=== PATIENT | female | born 1980 | race Caucasian/White ===

== ENCOUNTER 2024-10-08 10:42 | Outpatient (AMB) | payer OTHER, SELFPAY ==
--- NOTE | 2024-10-08 10:17 | MHC.PC.OV ---
Vital Signs 10/08/24 11:02 Height 5 ft 5.2 in Weight 166 lb BMI 27.5 BP 98/74 Blood Pressure Location Rt brachial Position Sitting Pulse 93 Pulse Source Pulse Oximeter Pulse Oximetry (%) 98 Oxygen Delivery Method Room Air Intake Visit Reasons: [facility] FROM [facility]/ MEDICATIONS Intake Note: New patient visit Shared Services Representative Required: No Allergies No Known Allergies [No Known Allergies*] Allergy (Verified 10/08/24 10:18) Tobacco use date assessed: 10/08/24 Dental Screening Dental Screen Date: 10/08/24 Did you have a dental visit in the last 12 months?: Yes Did you have a dental problem in the last 6 months where you did not have access to dental care?: No Was dental information given to patient?: Patient has dentist HPI HPI Comments History of Present Illness Details The patient is a 44-year-old female with a history of anxiety, GERD, recurrent UTI, follow-up anxiety: Stable on. Ativan as needed GERD: Stable on Prilosec 40 mg daily. Has had EGD in the past few years. She is unable to tolerate coming off the medication She had CT neck 10/25/2020 showing thyroid enlargement bilaterally without any tracheal compression. She gets a sensation of neck tightness and fullness. Recurrent UTI with a history of bladder mesh -stable Anxiety/depression: Stable on celexa but libido is low which is bothersome Hand pain: Following with orthopedics plant pathologist Dr. Merle MARINELLI CONSTITUTIONAL: Denies weight loss, fever and chills. HEENT: Denies changes in vision and hearing. RESPIRATORY: +cough CV: Denies palpitations and CP GI: Denies abdominal pain, nausea, vomiting and diarrhea. : Denies dysuria and urinary frequency. MSK: Denies new myalgia and joint pain. SKIN: Denies rash and pruritus. NEUROLOGICAL: Denies headache PSYCHIATRIC: Denies recent changes in mood. PHYSICAL EXAM: GENERAL: Alert and oriented x 3. NAD EYES: EOMI. Anicteric. HENT: Moist mucous membranes. No scleral icterus. thyroid heterogenous. LUNGS: Decrease air entry b/l CARDIOVASCULAR: Regular rate and rhythm. No murmur. No JVD. ABDOMEN: Soft, non-tender +bs EXTREMITIES: No edema. Non-tender. SKIN: No rashes or lesions. Warm. NEUROLOGIC: No focal neurological deficits. CN II-XII grossly intact PSYCHIATRIC: Cooperative. Appropriate mood and affect [facility] Surgical History (Updated 10/08/24 @ 10:59 by Marry Lema CMA) History of bladder surgery History of tonsillectomy Family History (Updated 10/08/24 @ 10:27 by Marry Lema CMA) Mother Leukemia Father No problems noted. 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 How often do you have a drink containing alcohol?: Never 3. How often do you have six or more drinks on one occasion?: Never Total Score: 0 Physical exam (Primary Care) Vital Signs: Last Vital Signs Pulse 93 10/08/24 11:02 BP 98/74 10/08/24 11:02 Pulse Ox 98 10/08/24 11:02 Oxygen Delivery Method Room Air 10/08/24 11:02 BMI result Body Mass Index 27.5 Tobacco/Smoking Status: Tobacco use Status Tobacco use date assessed 10/08/24 10/08/24 10:28 Patient Tobacco Use Status Never used Tobacco 10/08/24 11:07 e-Cigarette/Vaping Use Never Used 10/08/24 11:07 Coding Level of Care Code Est Pt Level 4 (38882) Complex EM visit Add On G2211 Diagnoses Anxiety and depression F41.9; F32.A Thyroid nodule E04.1 Assessment & Plan Assessment & Plan (1) Anxiety and depression: Code(s): F41.9 - Anxiety disorder, unspecified; F32.A - Depression, unspecified Category: Medical Plan: stable on celexa. Will add wellbutrin given sexual side effects (2) Thyroid nodule: Code(s): E04.1 - Nontoxic single thyroid nodule Category: Medical Plan: thyroid u/s ordered Plan cough-persistent. zpak and prednisone sent Orders: Orders US thyroid Today E04.1 - Nontoxic single thyroid nodule, F32.A - Depression, unspecified, F41.9 - Anxiety disorder, unspecified Thyroid Peroxidase Antibodies Today E04.1 - Nontoxic single thyroid nodule, F32.A - Depression, unspecified, F41.9 - Anxiety disorder, unspecified Complete Blood Count Auto Diff Today E04.1 - Nontoxic single thyroid nodule, F32.A - Depression, unspecified, F41.9 - Anxiety disorder, unspecified, Z13.0 - Encounter for screening for diseases of the blood and blood-forming organs and certain disorders involving the immune mechanism, Z13.220 - Encounter for screening for lipoid disorders, Z13.228 - Encounter for screening for other metabolic disorders Lipid Panel Today E04.1 - Nontoxic single thyroid nodule, F32.A - Depression, unspecified, F41.9 - Anxiety disorder, unspecified, Z13.0 - Encounter for screening for diseases of the blood and blood-forming organs and certain disorders involving the immune mechanism, Z13.220 - Encounter for screening for lipoid disorders, Z13.228 - Encounter for screening for other metabolic disorders TSH reflex Free T4 Today E04.1 - Nontoxic single thyroid nodule, F32.A - Depression, unspecified, F41.9 - Anxiety disorder, unspecified Comprehensive Met. Panel Today E04.1 - Nontoxic single thyroid nodule, F32.A - Depression, unspecified, F41.9 - Anxiety disorder, unspecified, Z13.0 - Encounter for screening for diseases of the blood and blood-forming organs and certain disorders involving the immune mechanism, Z13.220 - Encounter for screening for lipoid disorders, Z13.228 - Encounter for screening for other metabolic disorders Medications: New omeprazole 40 mg PO DAILY 90 caps 3RF citalopram 20 mg PO DAILY 90 tabs 3RF bupropion HCl Take one tablet oral once daily for 7 days then increase to 150mg oral daily. Continue celexa 75 mg PO DAILY 7 tabs 7RF bupropion HCl XL (Wellbutrin XL) 150 mg PO DAILY 90 tabs 3RF prednisone 40 mg (2 x 20 mg) PO DAILY 5 days 10 tabs 0RF albuterol sulfate 90 mcg/actuation 2 puffs inhalation Q6H PRN 8.5 grams 3RF shortness of breath cetirizine (All Day Allergy (cetirizine)) 10 mg PO DAILY 90 tabs 3RF lorazepam 1 mg PO TID PRN 90 tabs 0RF anxiety azithromycin For 250 mg dose pack: take 500 mg today (day 1), then 250 mg for 4 days (days 2-5) PO OK TO TAKE WITH CELEXA 6 tabs 0RF Discontinued nitrofurantoin monohyd/m-cryst 100 mg (Macrobid) must administer with a meal/food Discontinued Reason: Patient no longer taking 100 mg PO Q12H 7 days 14 caps 0RF phenazopyridine (Pyridium) Discontinued Reason: Patient no longer taking 100 mg PO TID PRN 10 tabs 0RF pain ciprofloxacin HCl Discontinued Reason: Patient no longer taking 500 mg PO Q12H 14 tabs 0RF
[2024-10-08 11:02] VITALS: BP 98/74; PULSE 93; O2SAT 98; BMI 27.5
== END 2024-10-08 11:45 | disposition home or self-care (01) ==
PROVIDERS: PCP Internal Medicine; Visit Provider Internal Medicine
DX: F41.9 Anxiety disorder, unspecified (principal); F32.A Depression, unspecified; E04.1 Nontoxic single thyroid nodule

== ENCOUNTER → 2024-10-08 10:42 | Outpatient (BNVA) | payer OTHER, SELFPAY | PROVIDERS: PCP Family Medicine; Visit Provider Internal Medicine ==

== ENCOUNTER 2024-10-08 11:56 | Outpatient (REF) | payer OTHER, SELFPAY ==
[2024-10-08 14:20] LABS: MANUAL DIFF FLAG NO
[2024-10-08 14:33] LABS: Basophils Percent Auto 0.7 % (0-2); Eosinophils Absolute Auto 0.3 X10*3/uL (0.0-0.4); Eosinophils Percent Auto 4.4 % (0-4); Hematocrit 33.7 % (37.0-47.0); Hemoglobin 11.2 g/dl (12.0-16.0); Imm Gran Abs Auto 0.01 X10*3/uL (0.00-0.03); Imm Gran Pct Auto 0.2 % (0.0-0.4); Lymphocytes Absolute Auto 1.9 X10*3/uL (1.2-4.9); Lymphocytes Percent Auto 31.9 % (20-40); Mean Corpuscular HGB Conc 33.2 g/dl (31.0-35.0); Mean Corpuscular Hemoglobin 27.7 pg (27.0-33.0); Mean Corpuscular Volume 83.4 fL (80.0-98.0); Mean Platelet Volume 9.1 fL (9.4-12.3); Monocytes Absolute Auto 0.5 X10*3/uL (0.1-1.2); Monocytes Percent Auto 7.7 % (2-11); Neutrophils Absolute Auto 3.3 x10*3/uL (2.0-8.3); Neutrophils Percent Auto 55.1 % (45-73); Platelet Count 317 X10*3/uL (160-400); Red Blood Count 4.04 X10*6/uL (4.20-5.50)
[2024-10-08 15:20] LABS: Alanine Aminotransferase 29 U/L (0-31); Albumin Level 4.5 g/dL (3.5-5.0); Alkaline Phosphatase 77 U/L (39-117); Anion Gap 9 (12-20); Aspartate Amino Transferase 28 U/L (5-31); Bilirubin Total 0.2 mg/dL (0.0-1.0); Blood Urea Nitrogen 8 mg/dL (9-16); Calcium 9.5 mg/dL (8.4-10.2); Carbon Dioxide 27 mmol/L (22-29); Chloride 106 mmol/L (96-108); Cholesterol 245 mg/dL (<200); Estimated Glomerular Filt Rate > 60; Glucose Random 106 mg/dL (60-115); HDL Cholesterol 56 mg/dL (>40); LDL Cholesterol Calculated 134 mg/dL (<100); Potassium 4.4 mmol/L (3.3-5.1); Sodium 138 mmol/L (135-145); TSH reflex Free T4 1.54 uIU/mL (0.32-4.0); Total Protein 7.2 g/dL (6.5-8.0); Triglycerides 279 mg/dL (<150)
[2024-10-09 18:18] LABS: Thyroid Peroxidase Antibodies <1 IU/mL (<9)
== END 2024-10-08 11:57 | disposition home or self-care (01) ==
LOC: HO.WFDLDS 11:56
PROVIDERS: Visit Provider Internal Medicine
DX: F41.9 Anxiety disorder, unspecified (principal); E04.1 Nontoxic single thyroid nodule; F32.A Depression, unspecified; Z13.0 Encounter for screening for diseases of the blood and blood-forming organs and certain disorders involving the immune mechanism; Z13.228 Encounter for screening for other metabolic disorders; Z13.220 Encounter for screening for lipoid disorders
CPT/HCPCS: 36415; 80053; 80061; 84443; 85025; 86376

== ENCOUNTER 2024-11-08 08:34 | Outpatient (REF) | payer OTHER, SELFPAY ==
--- NOTE | ~2024-11-08 | US_ITS ---
EXAMINATION: US THYROID HISTORY: E04.1 - Nontoxic single thyroid nodule TECHNIQUE: Real-time grayscale ultrasound imaging was performed and images were reviewed. COMPARISON: There are no prior studies for comparison. FINDINGS: SIZE: The right thyroid lobe measures 6.4 x 1.4 x 2.1 cm. The left thyroid lobe measures 6.2 x 1.3 x 2.8 cm. The isthmus measures 2 mm. FLOW: Flow to the gland is normal. ECHOGENICITY: The echotexture of the gland is homogeneous. NODULES: There is a 3 mm cysts in the interpolar region of the right thyroid lobe. On the left, there is a 5 x 2 x 4 mm cyst in the interpolar region and a 5 x 2 x 5 mm cyst in the interpolar region. A 6 x 3 x 4 mm spongiform nodule is noted in the interpolar region. US/US thyroid IMPRESSION: 6 x 3 x 4 mm spongiform nodule in the left mid thyroid gland. Multiple tiny bilateral thyroid cysts. Electronically signed by: Tad Forte MD 11/15/2024 02:29 PM [facility]
== END 2024-11-08 08:35 | disposition home or self-care (01) ==
LOC: HO.HMGCX 08:34
PROVIDERS: PCP Internal Medicine; Visit Provider Internal Medicine
DX: E04.1 Nontoxic single thyroid nodule (principal); F41.9 Anxiety disorder, unspecified; F32.A Depression, unspecified
CPT/HCPCS: 76536

== ENCOUNTER → 2024-11-08 08:58 | Outpatient (BNV) | payer OTHER, SELFPAY | PROVIDERS: PCP Internal Medicine; Visit Provider Radiology Diagnostic Radiology | DX: E04.1 Nontoxic single thyroid nodule (principal) | CPT/HCPCS: 76536 ==

== ENCOUNTER 2024-12-31 09:10 | Outpatient (AMB) | payer OTHER, SELFPAY ==
--- NOTE | 2024-12-31 09:21 | MHC.PC.OV ---
Vital Signs 12/31/24 09:31 Height 5 ft 5.2 in Weight 170 lb 4 oz BMI 28.2 BP 100/72 Blood Pressure Location Rt brachial Position Sitting Respiration 12 Pulse 89 Pulse Source Pulse Oximeter Pulse Oximetry (%) 98 Oxygen Delivery Method Room Air Intake Visit Reasons: Possible cyst behind left knee Intake Note: Cyst behind left knee Hotel General Manager Required: No Allergies No Known Allergies [No Known Allergies*] Allergy (Verified 12/31/24 09:29) Tobacco use date assessed: 12/31/24 Dental Screening Dental Screen Date: 10/08/24 HPI HPI Comments History of Present Illness Details The patient is a 44-year-old female with a history of anxiety, GERD, recurrent UTI, presenting for knee pain Patient has chronic bilateral knee pain. She has developed swelling behind the left knee. 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 There is no calf pain, redness or swelling. GERD: Stable on Prilosec 40 mg daily. Has had EGD in the past few years. She is unable to tolerate coming off the medication She had CT neck 10/25/2020 showing thyroid enlargement bilaterally without any tracheal compression. She gets a sensation of neck tightness and fullness. Recurrent UTI with a history of bladder mesh -stable Anxiety/depression: Stable on celexa but libido is low which is bothersome Hand pain: Following with orthopedics web content manager Dr. Merle Olseno- YVES see HPI PHYSICAL EXAM: GENERAL: Alert and oriented x 3. NAD EYES: EOMI. Anicteric. HENT: Moist mucous membranes. No scleral icterus. thyroid heterogenous. LUNGS: Decrease air entry b/l CARDIOVASCULAR: Regular rate and rhythm. No murmur. No JVD. ABDOMEN: Soft, non-tender +bs MSK: Popliteal cyst/swelling EXTREMITIES: No edema. Non-tender. SKIN: No rashes or lesions. Warm. NEUROLOGIC: No focal neurological deficits. CN II-XII grossly intact PSYCHIATRIC: Cooperative. Appropriate mood and affect [facility] Surgical History History of bladder surgery History of tonsillectomy Family History Mother Leukemia Father No problems noted. 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 Current occupational exposures/hazards: No Cognitive needs: No Hearing needs: No Vision needs: No Questionnaire PHQ-9 Over the last 2 weeks, how often have you been bothered by any of the following problems? 1. Little interest or pleasure in doing things: not at all 2. Feeling down, depressed, or hopeless: not at all 3. Trouble falling or staying asleep, or sleeping too much: not at all 4. Feeling tired or having little energy: several days 5. Poor appetite or overeating: not at all 6. Feeling bad about yourself - or that you are a failure or have let yourself or your family down: not at all 7. Trouble concentrating on things, such as reading the newspaper or watching television: not at all 8. Moving or speaking so slowly that other people could have noticed. Or the opposite - being so fidgety or restless that you have been moving around a lot more than usual: not at all 9. Thoughts that you would be better off or of hurting yourself in some way: not at all Total score: 1 Source: Developed by Drs. Tad Diaz, Sara Machado, Eleazar Linton and colleagues, with an educational davina from [email or web address] Thrive Questionnaire Date Thrive assessed: 12/31/24 I am a: Patient What is your living situation today?: I have a steady place to live Within the past 12 months, did the food you bought not last and you didn't have the money to get more?: Never true Within the past 12 months, did you worry whether your food would run out before you got money to buy more?: Never true Do you have trouble paying for medicines?: No Do you have trouble getting transportation to medical appointments?: No Do you have trouble paying your heating and electricity bill?: No Do you have trouble taking care of your child, family member or friend?: No Do you have trouble with day-to-day activities such as bathing, preparing meals, shopping, managing finances, etc.?: No Are you currently unemployed and looking for a job?: No Are you interested in more education?: No Please select the resources that you would like help with: None Currently or been in a relationship where the following occur: No concerns reported THRIVE Score: 0 AUDIT C Alcohol Use Questionnaire (AUDIT-C) 1. How often do you have a drink containing alcohol?: Never Total Score: 0 HESHAM-7 AMB Questionnaire HESHAM-7 Date HESHAM - 7 assessed: 12/31/24 Feeling nervous, anxious, or on edge: 0 = Not at all Not being able to stop or control worryin = Not at all Worrying too much about different things: 0 = Not at all Trouble relaxin = Not at all Being so restless that it is hard to sit still: 0 = Not at all Becoming easily annoyed or irritable: 0 = Not at all Feeling afraid as if something awful might happen: 0 = Not at all Total HESHAM-7 score (0-4 normal; 5-9 mild; 10-14 moderate; 15-21 severe): 0 Source: Developed by Drs. Tad Diaz, Sara Machado, Eleazar Linton and colleagues, with an educational davina from [email or web address] HESHAM-7 Assessment Billing HESHAM-7 Assessment Tool: HESHAM-7 Assessment 51903 Physical exam (Primary Care) Vital Signs: Last Vital Signs Pulse 89 12/31/24 09:31 Resp 12 12/31/24 09:31 BP 100/72 12/31/24 09:31 Pulse Ox 98 12/31/24 09:31 Oxygen Delivery Method Room Air 12/31/24 09:31 BMI result Body Mass Index 28.2 Tobacco/Smoking Status: Tobacco use Status Tobacco use date assessed 12/31/24 12/31/24 09:22 Patient Tobacco Use Status Never used Tobacco 12/31/24 09:31 e-Cigarette/Vaping Use Never Used 12/31/24 09:31 PHQ-9: PHQ-9 Score PHQ-9: Total score 1 12/31/24 09:22 Thrive Assessment: Date of Thrive Assessment Date Thrive assessed 12/31/24 12/31/24 09:22 Currently or been in a relationship where the following occur: No concerns reported Coding Level of Care Code Est Pt Level 4 (36460) Diagnoses Chronic pain of left knee M25.562; G89.29 Chronicity: chronic Additional Codes HESHAM-7 Assessment Billing - HESHAM-7 Assessment Tool: HESHAM-7 Assessment 47809 ([id number]) Assessment & Plan Assessment & Plan (1) Left knee pain: Code(s): M25.562 - Pain in left knee Category: Medical Qualifiers: Chronicity: chronic Qualified Code(s): M25.562 - Pain in left knee; G89.29 - Other chronic pain Plan: Chronic bilateral knee pain, increased left knee pain, bakers cyst. u/s ordered. Referral placed to orthopedics Orders: Orders US venous duplex LE LT Today M25.562 - Pain in left knee Referrals Orthopedics Referral M25.561 - Pain in right knee, M25.562 - Pain in left knee
[2024-12-31 09:31] VITALS: BP 100/72; PULSE 89; RESP 12; O2SAT 98; BMI 28.2
== END 2024-12-31 09:47 | disposition home or self-care (01) ==
PROVIDERS: PCP Internal Medicine; Visit Provider Internal Medicine
DX: M25.562 Pain in left knee (principal); G89.29 Other chronic pain

== ENCOUNTER → 2024-12-31 09:10 | Outpatient (BNVA) | payer OTHER, SELFPAY | PROVIDERS: PCP Internal Medicine; Visit Provider Internal Medicine | DX: M25.562 Pain in left knee (principal); G89.29 Other chronic pain | CPT/HCPCS: 96127 ==

== ENCOUNTER 2025-01-23 09:33 | Outpatient (REF) | payer OTHER, SELFPAY ==
--- NOTE | ~2025-01-23 | US_ITS ---
CLINICAL HISTORY: M71.20 - Synovial cyst of popliteal space [Orr], unspecified knee US popliteal fossa Comparison: None Findings: There is a 6.0 x 2.2 x 2.0 cm Orr's cyst. There are no other cystic or solid masses in the area scanned IMPRESSION: Orr's cyst This document has been electronically signed by: Eladio Nguyen MD on 01/24/2025 08:35:11
--- OUTSIDE RECORDS SUMMARY | 2025-01-23 10:32 | XMS_ITS | Encounter Summary ---
Author Organization [facility] Address [address] [place] [address] Care Team Providers Care Prosthodontist/Educator Name Role Phone Kathleen Duque MD Primary Care Provider Unavaila ble Reason for Referral * EXTERNAL (Routine) - Authorized/Booked Specialty Diagnoses / Procedures Referred By Contkristina t Referred To Contact Endocrinology Procedures REFERRAL TO ENDOCRINOLOGY Kathleen Duque MD [address] [place] [id number] External Endocrinology Referral ID Status Reason Start Date Expiration Date V isits Requested Visits Authorized SEE NOTE Authorized/B ooked 10/28/2020 02/10/2021 1 1 Reason for Visit * Reason Onset Date Comments Corn Chip Maker Feedback 10/28/2020 Dr. Oswald Encounter Details Date Type Department Care Team Description 10/28/2020 Telephone Medicine/Pediatrics - [address] [id number] Kathleen Duque MD Corn Chip Maker Feedback (Dr. Oswald) Social History Tobacco Use Types Packs/Day Years Used Date Smoking Tobacco: Never Smokeless Tobacco: Never Sex Assigned at Date Recorded Not on file documented as of this encounter Miscellaneous Notes * Telephone Encounter - Kathleen Duque MD - 10/28/2020 11:[address] referral to [facility] endocrinology for evaluation of thyroid nodule * Telephone Encounter - Robina Zambrano - 10/28/2020 11:[address] O'Noonan, You recently placed a referral for this patient to see Dr. Oswald for odynophagia, thyroid nodules . I reached out to the office in an attempt to schedule but the office would not book an appointment. I was informed that for a thyroid nodule diagnosis patients need to be referred to Dr. Oswald by e ndocrinology. They also stated a diagnosis of odynophagia wouldn't really be a diagnosis for him tosee either. I will be closing this order as we can't use it but unsure how you would like to proceed. Please review and advise. Thank you, Robina Referrals Department documented in this encounter Plan of Treatment Not on file documented as of this encounter Visit Diagnoses Not on filedocumented in this encounter Care Teams Prosthodontist/Educator Relationship Specialty Start Date End Date Kathleen Duque MD PCP - General Internal Medicine 09/04/20 documented as of this encounter
--- OUTSIDE RECORDS SUMMARY | 2025-01-23 10:32 | XMS_ITS | Clinical Summary ---
Author Organization [facility] Address [address] [place] [address] Care Team Providers Care Air Sampler Name Role Phone Kathleen Duque MD Primary Care Provider Unavaila ble Allergies No known active allergies Medications Medication Sig Dispensed Refills Start Date End Date Status citalopram (CELEXA) 20 MG tablet Take 1 Tab by mouth every morning. 90 Tab 1 12/04/2020 Active cetirizine (ZYRTEC ALLERGY) 10 MG tablet Take 1 Tab by mouth daily for 360 days. 90 Tab 1 12/04/2020 Active omeprazole (PRILOSEC) 20 MG capsule Take 1 Cap by mouth daily for 360 days. 90 Cap 1 12/04/2020 Active lorazepam (ATIVAN) 1 MG tablet Take 1 Tab by mouth at bedtime as needed for Anxiety for up to 28 days. 28 Tab 0 12/04/2020 Active Active Problems Problem Noted Date Enlarged thyroid 09/07/2020 Social History Tobacco Use Types Packs/Day Years Used Date Smoking Tobacco: Never Smokeless Tobacco: Never Sex Assigned at Date Recorded Not on file Last Filed Vital Signs Vital Sign Reading Time Taken Comments Blood Pressure 110/76 08/23/2021 10:41 AM EDT Pulse 77 09/07/2020 8:25 AM EST Temperature 36.8 ??C (98.2 ??F) 09/07/2020 8:25 AM ES T Respiratory Rate 12 09/07/2020 8:25 AM EST Oxygen Saturation 99% 09/07/2020 8:25 AM EST Inhaled Oxygen Concentration - - Weight 68 kg (149 lb 14.4 oz) 09/07/2020 8:25 AM EST Height 167.6 cm (5' 6 ) 08/23/2021 10:41 AM EDT Body Mass Index 24.19 09/07/2020 8:25 AM EST Plan of Treatment Health Maintenance Due Date Last Done Comments Covid-19 Vaccine (#1) 1982 DTAP/TDAP/TD (1 - Tdap) 2001 CERVICAL CANCER SCREENING 2003 BASELINE HEALTH EXAM 40-64 2022 MAMMOGRAM 2022 INFLUENZA (#1) 2024 CHOLESTEROL SCREENING 09/07/2025 09/07/2020 PNEUMOCOCCAL VACCINE FOR HIGH RISK PATIENTS (#1) 02/20 Care Teams Air Sampler Relationship Specialty Start Date End Date Kathleen Duque MD PCP - General Internal Medicine 09/04/20
== END 2025-01-23 09:34 | disposition home or self-care (01) ==
LOC: HO.HMGCX 09:33
PROVIDERS: PCP Internal Medicine; Visit Provider Internal Medicine
DX: M71.20 Synovial cyst of popliteal space [Baker], unspecified knee (principal); M25.562 Pain in left knee
CPT/HCPCS: 76882

== ENCOUNTER → 2025-01-23 09:35 | Outpatient (BNV) | payer OTHER, SELFPAY | PROVIDERS: PCP Internal Medicine; Visit Provider Specialist | DX: M71.22 Synovial cyst of popliteal space [Baker], left knee (principal) | CPT/HCPCS: 76882 ==

== ENCOUNTER 2025-02-14 14:51 | Outpatient (REF) | payer OTHER, SELFPAY | END 2025-02-14 14:52 | disposition home or self-care (01) | LOC: HO.HOSX 14:51 | PROVIDERS: Visit Provider Physician Assistant | DX: Z13.89 Encounter for screening for other disorder (principal) ==

== ENCOUNTER 2025-02-17 08:26 | Outpatient (AMB) | payer OTHER, SELFPAY ==
[2025-02-17 08:35] VITALS: BMI 28.1
--- NOTE | 2025-02-17 08:35 | A.OFFVIS_ITS ---
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 Patient was seen by her PCP who referred her to orthopedics. Patient reports that she has always had discomfort in her right knee. She is not able to bend her knee and get up to ambulate without having pain. States that she is unable to kneel on her right knee. Her left knee discomfort presented about a year ago. Left knee pain and swelling at the lateral aspect. She has tried icing, stretching, and massages. Her pain would radiates down from the posterior aspect of knee into her calf. She has a burning sensation with prolong standing. She has a palpable lump at the posterior aspect of both knees. She was told having a orr cyst on left knee. US LT knee. NO previous tx. Right knee bracing helps however left knee bracing made her foot go numb. 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 She reports ongoing discomfort in the right knee, which is aggravated by kneeling and twisting movements. The left knee pain commenced about a year ago, with radiating discomfort along the IT band. The patient has identified a Orr's cyst in the left knee and suspect formation in the right. Swelling and pain are exacerbated by prolonged standing and lead to sharp radiating pain into the calf. She has been managing the discomfort with Motrin and knee braces, though the latter sometimes causes further issues due to compression on the described cysts. [facility] Surgical History History of bladder surgery History of tonsillectomy Family History Mother Leukemia Father No problems noted. 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 [employer] Current occupational exposures/hazards: No Cognitive needs: No Hearing needs: No Vision needs: No Review of Systems Const All systems reviewed & are unremarkable except as noted in HPI and below Physical Exam Vital Signs: BMI result Body Mass Index 28.1 Const General: cooperative and no acute distress Orientation/consciousness: patient oriented x3 Resp Effort & Inspection: normal respiratory effort and able to speak in complete sentences Cardio Peripheral pulses: Peripheral pulses 2+ throughout Neuro General: patient oriented x3 Extrem Other: Notable anterior knee pain Rt > LT, particularly in the right knee, with discomfort when bending and difficulty straightening due to grinding behind the kneecap. Presence of Orr's cyst noted on the left knee, with a potential small one forming on the right. Pain reported along the lateral aspect of the knees, possibly related to IT band tension. Results Reviewed Results Reviewed: Xrays were obtained in the office today and personally reviewed by me of jm knee show lateralization of the patella Assessment & Plan Assessment & Plan (1) Patellofemoral disorder of both knees: Code(s): M22.2X1 - Patellofemoral disorders, right knee; M22.2X2 - Patellofemoral disorders, left knee Category: Medical Plan: I discussed the diagnosis of patellofemoral pain syndrome, highlighting the contributing factors of the lateral patellar tilt and muscle imbalances that have resulted in the recurring knee issues. I explained the proposed treatment plan which involves NSAIDs, physical therapy focusing on strengthening specific muscle groups, and possible utilization of knee braces for activity-related support. I emphasized the benefits of therapy in improving knee stability and reducing pain. Additionally, we reviewed the non-surgical options including potential use of injections if conservative management does not yield the desired outcomes. The patient was informed about the recommended physical therapy location and provided contact details for appointment scheduling. Lastly, I advised on the consistent NSAID use over a specified period and encouraged follow-up evaluations to assess progress if symptoms persist. The patient consented to the proposed management plan and displayed understanding of the potential course of the condition. Orders: Orders XR knee RT 3V Today M17.11 - Unilateral primary osteoarthritis, right knee XR knee LT 3V Today M25.562 - Pain in left knee PT Evaluation and Treatment Today M22.2X1 - Patellofemoral disorders, right knee, M22.2X2 - Patellofemoral disorders, left knee Coding Level of Care Code New Pt Level 3 (85858) Complex EM visit Add On G2211 Diagnoses Patellofemoral disorder of both knees M22.2X1; M22.2X2
== END 2025-02-17 09:06 | disposition home or self-care (01) ==
LOC: HO.HOS 08:27
PROVIDERS: PCP Internal Medicine; Visit Provider Physician Assistant
DX: M22.2X1 Patellofemoral disorders, right knee (principal); M22.2X2 Patellofemoral disorders, left knee
CPT/HCPCS: 99203

== ENCOUNTER → 2025-02-17 08:28 | Outpatient (BNV) | payer OTHER, SELFPAY | PROVIDERS: Visit Provider Radiology Diagnostic Radiology | DX: M25.562 Pain in left knee (principal); M17.11 Unilateral primary osteoarthritis, right knee | CPT/HCPCS: 73562 ==

== ENCOUNTER 2025-02-17 08:54 | Outpatient (REF) | payer OTHER, SELFPAY ==
--- NOTE | ~2025-02-17 | XR_ITS ---
CLINICAL HISTORY: M25.562 - Pain in left knee 3 views left knee, standing views Comparison: None Findings: No fractures or dislocations No joint effusion No significant arthritic change No radiopaque foreign body Impression: Normal left knee This document has been electronically signed by: Jose Rafael Carrion MD on 02/18/2025 00:54:01
--- NOTE | ~2025-02-17 | XR_ITS ---
CLINICAL HISTORY: M17.11 - Unilateral primary osteoarthritis, right knee 2 views right knee Comparison: None Findings: No fractures or dislocations. No joint effusion. No significant arthritic change. No radiopaque foreign body. Impression: 1. Normal right knee 2. Normal AP left knee This document has been electronically signed by: Jose Rafael Carrion MD on 02/18/2025 14:37:20
--- OUTSIDE RECORDS SUMMARY | 2025-02-18 09:21 | XMS_ITS | Encounter Summary ---
Author Organization [facility] Address [address] [place] [address] Care Team Providers Care Combine Driver Name Role Phone Kathleen Duque MD Primary Care Provider Unavaila ble Reason for Referral * EXTERNAL (Routine) - Authorized/Booked Specialty Diagnoses / Procedures Referred By Contkristina t Referred To Contact Endocrinology Procedures REFERRAL TO ENDOCRINOLOGY Kathleen Duque MD [address] [place] [id number] External Endocrinology Referral ID Status Reason Start Date Expiration Date V isits Requested Visits Authorized SEE NOTE Authorized/B ooked 10/28/2020 02/10/2021 1 1 Reason for Visit * Reason Onset Date Comments Digitizer Feedback 10/28/2020 Dr. Oswald Encounter Details Date Type Department Care Team Description 10/28/2020 Telephone Medicine/Pediatrics - [address] [phone] Kathleen Duque MD Digitizer Feedback (Dr. Oswald) Social History Tobacco Use Types Packs/Day Years Used Date Smoking Tobacco: Never Smokeless Tobacco: Never Sex Assigned at Date Recorded Not on file documented as of this encounter Miscellaneous Notes * Telephone Encounter - Kathleen Duque MD - 10/28/2020 11:[address] referral to [facility] endocrinology for evaluation of thyroid nodule * [...] on filedocumented in this encounter Care Teams Combine Driver Relationship Specialty Start Date End Date Kathleen Duque MD PCP - General Internal Medicine 09/04/20 documented as of this encounter
--- OUTSIDE RECORDS SUMMARY | 2025-02-18 09:21 | XMS_ITS | Clinical Summary ---
Author Organization [facility] Address [address] [facility] [place] [address] Care Team Providers Care Pluck Separator Name Role Phone Kathleen Duque MD Primary [...] HEALTH EXAM 40-64 2022 MAMMOGRAM 2022 INFLUENZA (Season Ended) 2025 CHOLESTEROL SCREENING 09/07/2025 09/07/2020 PNEUMOCOCCAL VACCINE FOR HIGH RISK PATIENTS (#1) 02/20 Care Teams Pluck Separator Relationship Specialty Start Date End Date Kathleen Duque MD PCP - General Internal Medicine 09/04/20
== END 2025-02-17 08:55 | disposition home or self-care (01) ==
LOC: HO.HOSX 08:54
PROVIDERS: Visit Provider Physician Assistant
DX: M25.562 Pain in left knee (principal); M17.11 Unilateral primary osteoarthritis, right knee
CPT/HCPCS: 73562

== ENCOUNTER 2025-04-16 11:29 | Outpatient (AMB) | payer OTHER, SELFPAY ==
--- NOTE | 2025-04-16 11:38 | MHC.PC.OV ---
Vital Signs 04/16/25 11:40 Height 5 ft 5.2 in Weight 166 lb 8 oz BMI 27.5 BP 108/78 Blood Pressure Location Lt brachial Position Sitting Respiration 12 Pulse 76 Pulse Source Pulse Oximeter Temp 98.1 F Temp Source Oral Pulse Oximetry (%) 99 Oxygen Delivery Method Room Air Intake Visit Reasons: Physical - Dr. Birch's pt. Intake Note: Physical Vocational Rehab Consultant Required: No Allergies No Known Allergies [No Known Allergies*] Allergy (Verified 04/16/25 11:39) Medication List - Last Reconciled 04/16/25 by Radha Osorio PA-C albuterol sulfate 90 mcg/actuation 2 puffs inhalation Q6H PRN cetirizine (All Day Allergy (cetirizine)) 10 mg PO DAILY citalopram 20 mg PO DAILY lorazepam 1 mg PO TID PRN magnesium citrate 100 mg PO DAILY omeprazole 40 mg PO DAILY Tobacco use date assessed: 04/16/25 Dental Screening Dental Screen Date: 04/16/25 Did you have a dental visit in the last 12 months?: Yes Did you have a dental problem in the last 6 months where you did not have access to dental care?: No Was dental information given to patient?: Patient has dentist HPI Physical - Dr. Birch's pt. HPI Details Patient is a 45-year-old female with a significant past medical history of anxiety, depression, thyroid nodule, presenting today for a physical exam. CV: Blood pressure today in the office is 108/78. She states that she does experience frequent palpitations especially with exertion. She says that she is frustrated because she would like to start exercising but if she goes up a flight of stairs she will notice that her heart races and she gets winded. She states that she also gets a squeezing sensation in her neck and in her upper chest. She states that it feels like a tightness. She sometimes gets a little lightheaded with this. She does have a family history of heart disease. Her mother has heart problems, father recently needed a CABG, grandfather had an early OR in 40s. Her last labs did show hyperlipidemia. She is not sure if she was fasting for that. Endo: She did recently have a thyroid ultrasound which did show cysts in a nodule. She would like to consult endocrinology as she feels that her thyroid has grown. GI: Often feels bloated but attributes this to diet or getting her period. Omeprazole is helpful for her acid reflux. Unable to come off of this. She has been on 40 mg for years. 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 She states that she was always a week after her daughter but she now has cycles that are about 20 days long and sometimes 30 days long. She is at times passing clots with her periods and she states for the 1st 3 days it is very heavy bleeding where she has to change her pad every couple hours. It has been like this for a year. She gets a lot of pain and bloating with this. She states that she never used to have periods like this. She is scheduled with gynecology but not until this summer. MSK: Has bilateral knee pain. Has not yet started PT. Psych: Anxiety is currently well-controlled with citalopram 20 mg. She uses lorazepam as needed. mammo: mammos q 6 months [facility] due to dense breasts, completed 12/31 [facility] Surgical History History of bladder surgery History of tonsillectomy Family History Mother Leukemia Father No problems noted. 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 [employer] Current occupational exposures/hazards: No Cognitive needs: No Hearing needs: No Vision needs: No Questionnaire Thrive Questionnaire Date Thrive assessed: 12/31/24 I am a: Patient What is your living situation today?: I have a steady place to live Within the past 12 months, did the food you bought not last and you didn't have the money to get more?: Never true Within the past 12 months, did you worry whether your food would run out before you got money to buy more?: Never true Do you have trouble paying for medicines?: No Do you have trouble getting transportation to medical appointments?: No Do you have trouble paying your heating and electricity bill?: No Do you have trouble taking care of your child, family member or friend?: No Do you have trouble with day-to-day activities such as bathing, preparing meals, shopping, managing finances, etc.?: No Are you currently unemployed and looking for a job?: No Are you interested in more education?: No Please select the resources that you would like help with: None Currently or been in a relationship where the following occur: No concerns reported THRIVE Score: 0 AUDIT C Alcohol Use Questionnaire (AUDIT-C) 1. How often do you have a drink containing alcohol?: Never 3. How often do you have six or more drinks on one occasion?: Never Total Score: 0 HESHAM-7 AMB Questionnaire HESHAM-7 Date HESHAM - 7 assessed: 12/31/24 Source: Developed by Drs. Tad Diaz, Sara Machado, Eleazar Linton and colleagues, with an educational davina from [employer]. Physical exam (Primary Care) Vital Signs: Last Vital Signs Temp 98.1 F 04/16/25 11:40 Pulse 76 04/16/25 11:40 Resp 12 04/16/25 11:40 BP 108/78 04/16/25 11:40 Pulse Ox 99 04/16/25 11:40 Oxygen Delivery Method Room Air 04/16/25 11:40 BMI result Body Mass Index 27.5 Tobacco/Smoking Status: Tobacco use Status Tobacco use date assessed 04/16/25 04/16/25 11:44 Patient Tobacco Use Status Never used Tobacco 04/16/25 11:44 e-Cigarette/Vaping Use Never Used 04/16/25 11:44 Thrive Assessment: Date of Thrive Assessment Date Thrive assessed 12/31/24 04/16/25 11:44 Currently or been in a relationship where the following occur: No concerns reported Const Orientation/consciousness: patient oriented x3 HENMT Ears: hearing grossly normal bilaterally General nose exam: No nasal polyps present Face and sinus: Yes sinuses nontender Mouth: Normal oral and palatal mucosa present Eyes Pupils: Equal, round and reactive pupils present EOM: EOMs intact bilaterally Neck Neck: Yes full ROM and Yes no lymphadenopathy Thyroid: Thyroid normal Lymphatic: no lymphadenopathy noted Chest Chest palpation & inspection: normal inspection of the chest Resp Auscultation: clear to auscultation bilaterally Cardio Rate: regular rate Rhythm: regular rhythm Heart sounds: S1 normal heart sound present and S2 normal heart sound present Peripheral pulses: Peripheral pulses 2+ throughout GI Other: Soft, nontender Inspection: Yes normal to inspection Palpation (GI): Soft to palpation and Other GI palpation findings present (nontender, no cva tenderness) Auscultation: normoactive bowel sounds Rectal Exam - Female: deferred General: Yes no CVA tenderness Back/Spine/Pelvis Other: Nontender Back: no CVA tenderness Skin General skin exam: no rashes or lesions noted Neuro General: patient oriented x3, gait normal and no focal motor deficits Cranial nerves: Yes Equal, round and reactive pupils present Motor exam (neuro): 5/5 motor strength present throughout Sensory Exam: double simultaneous stimulation for sensation normal Coordination: [id number] test normal and Romberg test negative Extrem General: Yes normal to inspection and Yes full ROM Psych Affect: normal affect Attitude: cooperative Thought process: Normal thought process present Thought content: Normal thought content present Insight: Good insight present (Psych) Judgement: Good judgement present (Psych) Results Reviewed Results Reviewed: Laboratory Tests 10/08/24 11:57 WBC 6.0 RBC 4.04 L Hgb 11.2 L Hct 33.7 L Plt Count 317 Sodium 138 Potassium 4.4 Chloride 106 Carbon Dioxide 27 Anion Gap 9 L BUN 8 L Creatinine 0.70 Estimated GFR > 60 Random Glucose 106 Calcium 9.5 Total Bilirubin 0.2 AST 28 ALT 29 Alkaline Phosphatase 77 Total Protein 7.2 Albumin 4.5 Triglycerides 279 H Cholesterol 245 H LDL Cholesterol, Calc 134 H HDL Cholesterol 56 TSH 1.54 IMPRESSION: 6 x 3 x 4 mm spongiform nodule in the left mid thyroid gland. Multiple tiny bilateral thyroid cysts. Coding Level of Care Code Est Pt Prev Care 40-64y(75370) Diagnoses Menorrhagia with irregular cycle N92.1 Anemia D64.9 Abdominal bloating with cramps R14.0; R10.9 Thyroid nodule E04.1 Palpitations R00.2 Neck tightness R29.898 Chest tightness R07.89 Routine general medical examination at a health care facility Z00.00 Assessment & Plan Assessment & Plan (1) Menorrhagia with irregular cycle: Code(s): N92.1 - Excessive and frequent menstruation with irregular cycle Category: Medical Plan: Pelvic ultrasound ordered (2) Anemia: Code(s): D64.9 - Anemia, unspecified Category: Medical Plan: Last labs showed anemia. We will check labs today. (3) Abdominal bloating with cramps: Code(s): R14.0 - Abdominal distension (gaseous); R10.9 - Unspecified abdominal pain Category: Medical Plan: As above (4) Thyroid nodule: Code(s): E04.1 - Nontoxic single thyroid nodule Category: Medical Plan: Referral to endocrinology (5) Palpitations: Code(s): R00.2 - Palpitations Category: Medical Plan: Holter monitor Echo Stress test (6) Neck tightness: Code(s): R29.898 - Other symptoms and signs involving the musculoskeletal system Category: Medical Plan: Carotid ultrasound ordered. Reviewed recent neck ultrasound. (7) Chest tightness: Code(s): R07.89 - Other chest pain Category: Medical Plan: As above (8) Routine general medical examination at a health care facility: Code(s): Z00.00 - Encounter for general adult medical examination without abnormal findings Plan: reviewed labs ordered Orders: Orders US pelvic and transvaginal Today D64.9 - Anemia, unspecified, N92.1 - Excessive and frequent menstruation with irregular cycle, R10.9 - Unspecified abdominal pain, R14.0 - Abdominal distension (gaseous) IRON PROFILE Today D64.9 - Anemia, unspecified, E78.5 - Hyperlipidemia, unspecified, N92.1 - Excessive and frequent menstruation with irregular cycle, R10.9 - Unspecified abdominal pain, R14.0 - Abdominal distension (gaseous) Comprehensive [place]. Panel Fast Today D64.9 - Anemia, unspecified, E78.5 - Hyperlipidemia, unspecified, N92.1 - Excessive and frequent menstruation with irregular cycle, R10.9 - Unspecified abdominal pain, R14.0 - Abdominal distension (gaseous) Complete Blood Count Auto Diff Today D64.9 - Anemia, unspecified, E78.5 - Hyperlipidemia, unspecified, N92.1 - Excessive and frequent menstruation with irregular cycle, R10.9 - Unspecified abdominal pain, R14.0 - Abdominal distension (gaseous) Lipid Panel Today D64.9 - Anemia, unspecified, E78.5 - Hyperlipidemia, unspecified, N92.1 - Excessive and frequent menstruation with irregular cycle, R10.9 - Unspecified abdominal pain, R14.0 - Abdominal distension (gaseous) TSH reflex Free T4 Today D64.9 - Anemia, unspecified, E78.5 - Hyperlipidemia, unspecified, N92.1 - Excessive and frequent menstruation with irregular cycle, R10.9 - Unspecified abdominal pain, R14.0 - Abdominal distension (gaseous) Hemoglobin A1c Today D64.9 - Anemia, unspecified, E78.5 - Hyperlipidemia, unspecified, N92.1 - Excessive and frequent menstruation with irregular cycle, R10.9 - Unspecified abdominal pain, R14.0 - Abdominal distension (gaseous), R73.01 - Impaired fasting glucose Ferritin Today D64.9 - Anemia, unspecified, E78.5 - Hyperlipidemia, unspecified, N92.1 - Excessive and frequent menstruation with irregular cycle, R10.9 - Unspecified abdominal pain, R14.0 - Abdominal distension (gaseous) ECG holter monitor 24 hour Today R00.2 - Palpitations AMB EKG-In Office Today R00.2 - Palpitations CA echo transthoracic complete Today R00.2 - Palpitations, R29.898 - Other symptoms and signs involving the musculoskeletal system, R42 - Dizziness and giddiness US carotid duplex BI Today R00.2 - Palpitations, R07.89 - Other chest pain, R29.898 - Other symptoms and signs involving the musculoskeletal system, R42 - Dizziness and giddiness XR chest 2V Today R00.2 - Palpitations, R07.89 - Other chest pain, R10.9 - Unspecified abdominal pain, R14.0 - Abdominal distension (gaseous), R29.898 - Other symptoms and signs involving the musculoskeletal system NM cardiolite stress test Today R00.2 - Palpitations, R07.89 - Other chest pain, R07.9 - Chest pain, unspecified, R10.9 - Unspecified abdominal pain, R14.0 - Abdominal distension (gaseous), R29.898 - Other symptoms and signs involving the musculoskeletal system US abdomen complete Today R10.9 - Unspecified abdominal pain, R14.0 - Abdominal distension (gaseous) Vitamin B12 and Folate Today D64.9 - Anemia, unspecified, E78.5 - Hyperlipidemia, unspecified, N92.1 - Excessive and frequent menstruation with irregular cycle, R10.9 - Unspecified abdominal pain, R14.0 - Abdominal distension (gaseous) CA stress test Today R00.2 - Palpitations, R07.89 - Other chest pain, R10.9 - Unspecified abdominal pain, R14.0 - Abdominal distension (gaseous), R29.898 - Other symptoms and signs involving the musculoskeletal system Referrals Endocrinology Referral E04.1 - Nontoxic single thyroid nodule
[2025-04-16 11:40] VITALS: BP 108/78; PULSE 76; RESP 12; TEMP 36.7; O2SAT 99; BMI 27.5
== END 2025-04-16 12:52 | disposition home or self-care (01) ==
LOC: HO.HMCFM 11:29
PROVIDERS: Visit Provider Physician Assistant
DX: N92.1 Excessive and frequent menstruation with irregular cycle (principal); D64.9 Anemia, unspecified; R14.0 Abdominal distension (gaseous); R10.9 Unspecified abdominal pain; E04.1 Nontoxic single thyroid nodule; R00.2 Palpitations; R29.898 Other symptoms and signs involving the musculoskeletal system; R07.89 Other chest pain; Z00.00 Encounter for general adult medical examination without abnormal findings

== ENCOUNTER → 2025-04-16 11:29 | Outpatient (BNVA) | payer OTHER, SELFPAY | PROVIDERS: Visit Provider Physician Assistant ==

== ENCOUNTER 2025-04-18 10:45 | Outpatient (REF) | payer OTHER, SELFPAY ==
--- NOTE | ~2025-04-18 | XR_ITS ---
EXAMINATION: XR CHEST CLINICAL INFORMATION: R07.89 - Other chest pain COMPARISON: None available. TECHNIQUE: 2 views of the chest were obtained. FINDINGS: The cardiac, hilar, and mediastinal contours are normal. The lungs are clear bilaterally. There is no pneumothorax or pleural effusion. There is no focal osseous or soft tissue abnormality. XR/XR chest 2V IMPRESSION: Normal chest. Electronically signed by: Kevon Dale MD 04/18/2025 11:09 AM EDT
--- OUTSIDE RECORDS SUMMARY | 2025-04-18 11:48 | XMS_ITS | Encounter Summary ---
Author Organization [facility] Address [address] [facility] [place] [address] Care Team Providers Care Hand Launderer Name Role Phone Savanah Jara Primary Care Provider Kathleen Franklin MD Primary Care Provider Allan helton Encounter Details Date Type Department Care Team Description 07/06/2017 Release of Information Medical Records [address] [place] [id number] Abstract, Provider Social History Tobacco Use Types Packs/Day Years Used Date Smoking Tobacco: Never Assessed Sex Assigned at Date Recorded Not on file documented as of this encounter Plan of Treatment Not on file documented as of this encounter Visit Diagnoses Not on filedocumented in this encounter Care Teams Hand Launderer Relationship Specialty Start Date End Date Savanah Jara PCP - General Family Practice 11/30/16 09/03/20 Kathleen Duque MD PCP - General Internal Medicine 09/04/20 documented as of this encounter
[2025-04-18 12:57] LABS: MANUAL DIFF FLAG NO
[2025-04-18 13:23] LABS: Basophils Absolute Auto 0.1 X10*3/uL (0.0-0.2); Basophils Percent Auto 1.2 % (0-2); Eosinophils Absolute Auto 0.2 X10*3/uL (0.0-0.4); Eosinophils Percent Auto 4.3 % (0-4); Hematocrit 32.6 % (37.0-47.0); Hemoglobin 10.4 g/dl (12.0-16.0); Imm Gran Abs Auto 0.01 X10*3/uL (0.00-0.03); Imm Gran Pct Auto 0.2 % (0.0-0.4); Lymphocytes Absolute Auto 1.9 X10*3/uL (1.2-4.9); Lymphocytes Percent Auto 38.7 % (20-40); Mean Corpuscular HGB Conc 31.9 g/dl (31.0-35.0); Mean Corpuscular Hemoglobin 26.3 pg (27.0-33.0); Mean Corpuscular Volume 82.5 fL (80.0-98.0); Mean Platelet Volume 9.3 fL (9.4-12.3); Monocytes Absolute Auto 0.4 X10*3/uL (0.1-1.2); Monocytes Percent Auto 8.5 % (2-11); Neutrophils Absolute Auto 2.3 x10*3/uL (2.0-8.3); Neutrophils Percent Auto 47.1 % (45-73); Platelet Count 336 X10*3/uL (160-400); Red Blood Count 3.95 X10*6/uL (4.20-5.50); Red Cell Distribution Width 14.2 % (11.0-16.0); White Blood Count 4.8 X10*3/uL (4.8-10.8)
[2025-04-18 13:29] LABS: Estimated Average Glucose 126 mg/dL; Hemoglobin A1C 116.0591 umol/L
[2025-04-18 13:47] LABS: Alanine Aminotransferase 14 U/L (0-31); Albumin Level 4.7 g/dL (3.5-5.0); Alkaline Phosphatase 75 U/L (39-117); Anion Gap 11 (12-20); Aspartate Amino Transferase 23 U/L (5-31); Bilirubin Total 0.3 mg/dL (0.0-1.0); Blood Urea Nitrogen 11 mg/dL (9-16); Calcium 9.4 mg/dL (8.4-10.2); Carbon Dioxide 25 mmol/L (22-29); Chloride 109 mmol/L (96-108); Cholesterol 229 mg/dL (<200); Estimated Glomerular Filt Rate > 60; Glucose Fasting 105 mg/dL (60-99); HDL Cholesterol 52 mg/dL (>40); Iron 41 mcg/dL (30-160); LDL Cholesterol Calculated 158 mg/dL (<100); Percent Iron Saturation 11 % (15-50); Potassium 4.7 mmol/L (3.3-5.1); Sodium 140 mmol/L (135-145); Total Iron Binding Capacity 361 mcg/dL (228-428); Total Protein 6.8 g/dL (6.5-8.0); Triglycerides 95 mg/dL (<150); Unsaturated Iron Binding 320 ug/dL
[2025-04-18 13:54] LABS: Ferritin 5 ng/mL (10-250); TSH reflex Free T4 1.36 uIU/mL (0.32-4.0)
[2025-04-18 14:11] LABS: Folate 6.6 ng/mL (> or = 4.0); Vitamin B12 340 pg/mL (200-900)
== END 2025-04-18 10:46 | disposition home or self-care (01) ==
LOC: HO.HMGCX 10:45
PROVIDERS: PCP Physician Assistant; Visit Provider Physician Assistant
DX: R73.01 Impaired fasting glucose (principal); E78.5 Hyperlipidemia, unspecified; N92.1 Excessive and frequent menstruation with irregular cycle; D64.9 Anemia, unspecified; R10.9 Unspecified abdominal pain; R14.0 Abdominal distension (gaseous); R00.2 Palpitations; R29.898 Other symptoms and signs involving the musculoskeletal system; R07.89 Other chest pain; I10 Essential (primary) hypertension
CPT/HCPCS: 36415; 71046; 80053; 80061; 82607; 82728; 82746; 83036; 83540; 84443; 85025

== ENCOUNTER → 2025-04-18 10:50 | Outpatient (BNV) | payer OTHER, SELFPAY | PROVIDERS: PCP Physician Assistant; Visit Provider Radiology Diagnostic Radiology | DX: R07.89 Other chest pain (principal) | CPT/HCPCS: 71046 ==

== ENCOUNTER → 2025-05-21 07:54 | Outpatient (REF) | payer OTHER, SELFPAY ==
--- NOTE | 2025-05-21 07:56 | HM_ITS ---
Conclusion: 1. Patient was monitored for total period of 1 day 2. Baseline normal sinus rhythm with average heart of 88 beats per minute 3. No significant pauses noted 4. Rare PACs and PVCs noted 5. Frequent sinus tachycardia noted with 25% of the time heart rate about 100 beats per minute 6. Patient marked the counter 2 times correlating with normal sinus rhythm MTDD
--- NOTE | 2025-05-21 07:56 | CA_ITS ---
Transthoracic Echocardiogram Patient (Last, First, Middle): Nina Aguilar A Gender: Female Date of : 1980 Age: 45 Procedure Date: 05/21/2025 Procedure Type: Transthoracic Echocardiogram Location: OP Height: 167.64 cm Weight: 75.3 kg BSA: 1.85 m2 Heart Rate: 64 bpm BP: 118 / 78 mmHg Samples And Repairs Preparer: TO Referring MD: Radha Osorio PA-C Symptoms: R00.2 - Palpitations Study Quality: Adequate w contrast ECG Rhythm: Sinus Conclusions: - The left ventricular systolic function is normal. The calculated ejection fraction is 62% by biplane method. - No obvious valvular pathology seen on this study. Findings Procedure Information Contrast agent, definity, is being given per protocol without apparent complications. Left Ventricle Normal left ventricular cavity size. There is normal left ventricular wall thickness. The left ventricular systolic function is normal. The calculated ejection fraction is 62% by biplane method. There is no evidence of regional wall motion abnormalities. Diastolic function is normal for age. Right Ventricle Normal right ventricular cavity size and systolic function. Atria Both atria are normal in size. Aortic Valve There is a normal trileaflet aortic valve. There is no aortic valve stenosis. There is no aortic valve regurgitation. Mitral Valve The mitral valve appears normal. There is no mitral valve regurgitation. There is no mitral valve stenosis. Pulmonic Valve The pulmonic valve is likely normal. Tricuspid Valve There is trace tricuspid valve regurgitation. There is no evidence of pulmonary hypertension. Great Vessels The asc aorta is normal in size. Venous The inferior vena cava is normal in size and collapses greater than 50% with inspiration. Pericardium/Pleural There is no evidence of pericardial effusion. Prior Study Comparison No prior study available for comparison. Recommendations, Care & Conclusions No obvious valvular pathology seen on this study. Measurements 2D Linear Measurements IVSd: 0.88 0.6-0.9/0.6-1.0 cm LVIDd: 4.80 3.9-5.3/4.2-5.9 cm LVIDd Index: 2.59 2.4-3.2/2.2-3.1 cm/m2 LVIDs: 2.96 2.0-3.6 cm LVPWd: 0.70 0.7-1.1 cm LA Diam: 3.30 2.7-3.8/3.0-4.0 cm LAIDs Index: 1.78 1.5-2.3 cm/m2 LV Mass: 155.96 67-162/88-224 g LV Mass Index: 84.30 43-95/49-115 g/m2 LVOT Diam: 2.20 3.0+(-)1.3 cm 2D Systolic Function EF 4C: 65.30 >55% EF 2C: 59.80 >55% EF BiP: 62.00 >55% Mitral Valve MV Pk E: 0.58 MV PK A: 0.43 MV Decel Time: 232.00 E/A: 1.40 E'Lateral: 10.60 E'Medial: 8.05 E/E' Med: 7.20 E/E' Lat: 5.50 PHT: 68.00 MVA PHT: 3.24 Decel Elk: 2.51 Aortic Valve AoV Pk Marcos: 1.00 AoV Mn Marcos: 0.69 AoV VTI: 0.22 AoV Pk Grad: 4.00 Aov Mn Grad: 2.00 KIAH Cont.VTI: 2.91 LVOT LVOT Pk Marcos: 0.83 LVOT Mn Marcos: 0.50 LVOT VTI: 0.17 LVOT Pk Grad: 3.00 LVOT Mn Grad: 1.00 LVOT Diam: 2.20 LVOT Area: 3.80 Diastolic Function MV Pk E: 0.58 MV Pk A: 0.43 E/A: 1.40 E'Medial: 8.05 E/E' Med: 7.20 E' Laterial: 10.60 E/E' Lat: 5.50 Right Ventricle TAPSE (mm): 20.00 TVS' Marcos: 10.20 Tricuspid Valve TR Pk Marcos: 2.05 TR Pk Grad: 17.00 RA Press: 3.00 RVSP: 20.00 Great Vessels Aorta Sinus of Valsalva: 3.10 2.0-3.5 cm Ao Asc: 2.70 2.1-3.4 cm Updated in Other Vendor System with Status of Final Fabien Stern MD electronically signed on 05/22/2025 11:36:57 AM with status of Final
== END ==
LOC: HO.CARD 07:54
PROVIDERS: PCP Physician Assistant; Visit Provider Physician Assistant
DX: R00.2 Palpitations (principal)
CPT/HCPCS: 93225; 93306; Q9957

== ENCOUNTER → 2025-05-21 07:56 | Outpatient (BNV) | payer OTHER, SELFPAY | PROVIDERS: PCP Physician Assistant; Visit Provider Internal Medicine | DX: R00.2 Palpitations (principal) | CPT/HCPCS: 93306 ==

== ENCOUNTER 2025-05-30 08:51 | Outpatient (AMB) | payer OTHER, SELFPAY ==
--- NOTE | 2025-05-30 08:54 | A.OFFVIS_ITS ---
Vital Signs 05/30/25 08:56 Height 5 ft 5.2 in Weight 165 lb 2.02 oz BMI 27.3 BP 114/72 Blood Pressure Location Rt brachial Position Sitting Pulse 83 Pulse Source Pulse Oximeter Pulse Oximetry (%) 97 Oxygen Delivery Method Room Air Intake Visit Reasons: Nontoxic single thyroid nodule Intake Note: New patient present today for Nontoxic single thyroid nodule. 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 Said she was diagnosed with her nodules in her 20s, and had many surveillance ultrasounds. Saw an process maintenance technician many years ago. Ultrasound thyroid 11/08/2024, I reviewed the images myself which show homogeneous gland with normal vascularity. Right mid lobe 3 mm cyst, left mid lobe 5 mm cyst. 6 mm spongiform nodule in the left mid lobe. Another left midpole 5 mm cyst. All of these are low risk appearing lesions, with no need for follow up. Normal TSH from April 2025 At 1.36 Patient currently denies heat or cold intolerance, diarrhea or constipation, hair loss, anxiety,, mood changes, low energy, changes in appearance of eyes or vision changes, tremors, increased diaphoresis or dry skin. ? Has had some intermittent palpitations with exertion, had some cardiac workup so far unremarkable. Gained weight gradually over some years. Describes difficukty swallowing for many years. some dull pain on exertion in the neck. Feels sensation of fullness in the neck. Patient denies any history of childhood neck radiation. Denies having ever used lithium, amiodarone or biotin supplements. Patient denies any family history of thyroid cancer. 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 COMPARISON: There are no prior studies for comparison. FINDINGS: SIZE: The right thyroid lobe measures 6.4 x 1.4 x 2.1 cm. The left thyroid lobe measures 6.2 x 1.3 x 2.8 cm. The isthmus measures 2 mm. FLOW: Flow to the gland is normal. ECHOGENICITY: The echotexture of the gland is homogeneous. NODULES: There is a 3 mm cysts in the interpolar region of the right thyroid lobe. On the left, there is a 5 x 2 x 4 mm cyst in the interpolar region and a 5 x 2 x 5 mm cyst in the interpolar region. A 6 x 3 x 4 mm spongiform nodule is noted in the interpolar region. US/US thyroid IMPRESSION: 6 x 3 x 4 mm spongiform nodule in the left mid thyroid gland. Multiple tiny bilateral thyroid cysts. [facility] Surgical History History of bladder surgery History of tonsillectomy Family History Mother Leukemia Father No problems noted. 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 Current occupational exposures/hazards: No Cognitive needs: No Hearing needs: No Vision needs: No Physical Exam Vital Signs: Last Vital Signs Pulse 83 05/30/25 08:56 BP 114/72 05/30/25 08:56 Pulse Ox 97 05/30/25 08:56 Oxygen Delivery Method Room Air 05/30/25 08:56 BMI result Body Mass Index 27.3 Assessment & Plan Assessment & Plan (1) Thyroid nodule: Code(s): E04.1 - Nontoxic single thyroid nodule Category: Medical Plan: 45-year-old female with no family history of thyroid cancer with no personal history of head or neck radiation, coming in today for initial evaluation of thyroid nodules. Ultrasound thyroid 11/08/2024, I reviewed the images myself which show homogeneous gland with normal vascularity. Right mid lobe 3 mm cyst, left mid lobe 5 mm cyst. 6 mm spongiform nodule in the left mid lobe. Another left midpole 5 mm cyst. All of these are low risk appearing lesions, with no need for follow up. I explained that it is common to have thyroid nodules. About 95% of the time these nodules are benign. However if the nodule is > 1 cm in size or suspicious on ultrasound then a fine need aspiration biopsy is recommended. I discussed with the patient that at this time her nodules do not meet criteria for follow up and while she does have a lot of nonspecific symptoms, other etiologies can be explored such as possible musculoskeletal pain in the neck, uncontrolled acid reflux, exercise induced asthma. A large part of the visit was spent providing reassurance to the patient that her thyroid nodules are not responsible for any of her symptoms. I did discuss with her that if her symptoms persist or worsen a thyroid ultrasound can be repeated by her primary care physician in 1-2 years. However at this time no other intervention is needed with regards to the thyroid nodules. Normal TSH from April 2025 At 1.36 Plan: -primary care provider can consider repeating a thyroid ultrasound in 1-2 years if patient has worsening compressive symptoms, no need for follow up with the endocrinology for now Plan See above Coding Level of Care Code New Pt Level 3 (82685) Diagnoses Thyroid nodule E04.1
[2025-05-30 08:56] VITALS: BP 114/72; PULSE 83; O2SAT 97; BMI 27.3
--- OUTSIDE RECORDS SUMMARY | 2025-05-30 09:06 | XMS_ITS | Encounter Summary ---
Author Organization [facility] Address [address] [place] [address] Phone Care Team Providers Care Specimen Accessioner Name Role Phone Savanah Jara MD Primary Care Provider + Encounter Details Date Type Department Care Team (Latest Contact Info) Description 04/15/2021 Transcribe Orders Virtual Department [address] [place] [address] Danielle Alva PA-C [address] [place] [address] [email or web address] Gastroesophageal reflux disease, unspecified whether esophagitis present (Primary Dx) Social History Tobacco Use Types Packs/Day Years Used Date Smoking Tobacco: Never Assessed Comments Unknown Sex and Gender Information Value Date Recorded Sex Assigned at Not on file Legal Sex Female 3:23 PM EDT Gender Identity Not on file Sexual Orientation Not on file documented as of this encounter Plan of Treatment Not on file documented as of this encounter Visit Diagnoses Diagnosis Gastroesophageal reflux disease, unspecified whether esophagitis present- Primary documented in this encounter Care Teams Specimen Accessioner Relationship Specialty Start Date End Date Savanah Jara MD [address] [place] [id number] PCP - General Family Medicine 02/16/18 documented as of this encounter Additional Source Comments The information contained in this document represents components of the legal health record. It is not the complete legal health record.[facility]
== END 2025-05-30 09:19 | disposition home or self-care (01) ==
LOC: HO.ENCR 08:52
PROVIDERS: PCP Physician Assistant; Visit Provider Student in an Organized Health Care Education/Training Program
DX: E04.1 Nontoxic single thyroid nodule (principal)
CPT/HCPCS: 99203

== ENCOUNTER 2025-06-09 09:25 | Outpatient (REF) | payer OTHER, SELFPAY ==
--- NOTE | ~2025-06-09 | US_ITS ---
CLINICAL HISTORY: R14.0 - Abdominal distension (gaseous) US abdomen complete Comparison: None provided Findings: The visualized pancreas is normal. The aorta and inferior vena cava are normal caliber. The liver measures 15.2 cm in length. There is increased echogenicity within the liver. There is no intrahepatic bile duct dilatation. The common duct is 3 mm in diameter. The gallbladder is normal. There is no sonographic Decker sign. The main portal vein is antegrade. The right kidney is 10.5 cm in length. The left kidney is 10.5 cm in length. The spleen is normal. No ascites. IMPRESSION: Possible fatty infiltration of the liver. This document has been electronically signed by: Herminia Rehman MD on 06/09/2025 16:13:25
--- OUTSIDE RECORDS SUMMARY | 2025-06-09 09:53 | XMS_ITS | Encounter Summary ---
Author Organization [facility] Address [address] [place] [phone] Phone Care Team Providers Care Splitter Tender Name Role Phone Savanah Jara MD Primary Care Provider + Encounter Details Date Type Department Care Team (Latest Contact Info) Description 04/15/2021 Transcribe Orders Virtual Department [address] [place] [address] Danielle Alva PA-C [address] [place] [address] [email or web address] Gastroesophageal reflux disease, unspecified whether esophagitis [...] Primary documented in this encounter Care Teams Splitter Tender Relationship Specialty Start Date End Date Savanah Jara MD [address] [place] [address] PCP - General Family Medicine 02/16/18 documented as of this encounter Additional Source Comments The information contained in this document represents components of the legal health record. It is not the complete legal health record.[facility]
== END 2025-06-09 09:26 | disposition home or self-care (01) ==
LOC: HO.US 09:25
PROVIDERS: PCP Physician Assistant; Visit Provider Physician Assistant
DX: R10.9 Unspecified abdominal pain (principal); R14.0 Abdominal distension (gaseous)
CPT/HCPCS: 76700

== ENCOUNTER → 2025-06-09 09:27 | Outpatient (BNV) | payer OTHER, SELFPAY | PROVIDERS: PCP Physician Assistant; Visit Provider Radiology Diagnostic Radiology | DX: R14.0 Abdominal distension (gaseous) (principal) | CPT/HCPCS: 76700 ==

== ENCOUNTER 2025-06-19 14:49 | Outpatient (REF) | payer OTHER, SELFPAY ==
--- NOTE | ~2025-06-19 | US_ITS ---
EXAMINATION: BILATERAL CAROTID ULTRASOUND WITH DOPPLER HISTORY: R00.2 - Palpitations COMPARISON: There are no prior studies available for comparison. TECHNIQUE: Real time and Color and Spectral doppler ultrasonography of the carotid and vertebral arteries was performed in multiple planes. FINDINGS: No calcified plaque is identified. There is extensive spectral broadening bilaterally. VERTEBRAL FLOW DIRECTION: Antegrade bilaterally. PEAK SYSTOLIC VELOCITIES (in cm/sec): RIGHT: CCA: Prox: 122 Dist: 65.9 ICA: Prox: 114 Mid: 125 Dist: 146 ICA/CCA Ratio: 1.20 ECA: 147 Peak ICA end diastolic velocity (EDV): 61.9 LEFT: CCA: Prox: 125 Dist: 116 ICA: Prox: 123 Mid: 165 Dist: 142 ICA/CCA Ratio: 1.32 ECA: 121 Peak ICA end diastolic velocity (EDV): 65.9 US/US carotid duplex BI IMPRESSION: While no definite plaque is seen, there is extensive spectral broadening and mild elevation of the peak systolic velocities. Additional evaluation with CTA or MRA should be considered. Electronically signed by: Tad Forte MD 06/19/2025 03:58 PM EDT
--- OUTSIDE RECORDS SUMMARY | 2025-06-19 15:27 | XMS_ITS | Clinical Summary ---
Author Organization [facility] Address [address] [place] [address] Care Team Providers Care Health Program Analyst Name Role Phone Kathleen Duque MD Primary [...] 77 09/07/2020 8:25 AM EST Temperature 36.8 C (98.2 F) 09/07/2020 8:25 AM EST Respiratory Rate 12 09/07/2020 8:25 AM EST [...] EXAM 40-64 2022 MAMMOGRAM 2022 INFLUENZA (#1) 2025 CHOLESTEROL SCREENING 09/07/2025 09/07/2020 PNEUMOCOCCAL VACCINE FOR HIGH RISK PATIENTS (#1) 02/20 Care Teams Health Program Analyst Relationship Specialty Start Date End Date Kathleen uDque MD PCP - General Internal Medicine 09/04/20
--- OUTSIDE RECORDS SUMMARY | 2025-06-19 15:27 | XMS_ITS | Encounter Summary ---
Author Organization [facility] Address [address] [place] [address] Phone Care Team Providers Care Commercial Energy Auditor Name Role Phone Savanah Jara MD Primary Care Provider + Encounter Details Date Type Department Care Team (Latest Contact Info) Description 04/15/2021 Transcribe Orders Virtual Department [address] [place] [address] Danielle Alva PA-C [address] [place] [address] [email or web address] Gastroesophageal reflux disease, unspecified whether esophagitis [...] Primary documented in this encounter Care Teams Commercial Energy Auditor Relationship Specialty Start Date End Date Savanah Jara MD [address] [place] [id number] PCP - General Family Medicine 02/16/18 documented as of this encounter Additional Source Comments The information contained in this document represents components of the legal health record. It is not the complete legal health record.[facility]
== END 2025-06-19 14:50 | disposition home or self-care (01) ==
LOC: HO.US 14:49
PROVIDERS: PCP Physician Assistant; Visit Provider Physician Assistant
DX: R00.2 Palpitations (principal); R29.898 Other symptoms and signs involving the musculoskeletal system; R42 Dizziness and giddiness; R07.89 Other chest pain
CPT/HCPCS: 93880

== ENCOUNTER → 2025-06-19 14:51 | Outpatient (BNV) | payer OTHER, SELFPAY | PROVIDERS: PCP Physician Assistant; Visit Provider Radiology Diagnostic Radiology | DX: R00.2 Palpitations (principal) | CPT/HCPCS: 93880 ==

== ENCOUNTER 2025-10-01 12:10 | Outpatient (REF) | payer OTHER, SELFPAY ==
[2025-10-01 12:22] LABS: MANUAL DIFF FLAG NO
[2025-10-01 12:35] LABS: Hematocrit 35.5 % (37.0-47.0); Hemoglobin 12.3 g/dl (12.0-16.0); Imm Gran Abs Auto 0.02 X10*3/uL (0.00-0.03); Imm Gran Pct Auto 0.3 % (0.0-0.4); Lymphocytes Absolute Auto 2.5 X10*3/uL (1.2-4.9); Mean Corpuscular HGB Conc 34.6 g/dl (31.0-35.0); Mean Corpuscular Hemoglobin 29.9 pg (27.0-33.0); Mean Corpuscular Volume 86.4 fL (80.0-98.0); NRBC Abs Auto 0.000 X10*3/uL (0.0-0.012); NRBC Pct Auto 0.0 /100WBC (0.0-0.2); Platelet Count 294 X10*3/uL (160-400); Red Blood Count 4.11 X10*6/uL (4.20-5.50); White Blood Count 6.5 X10*3/uL (4.8-10.8)
[2025-10-01 13:10] LABS: Alanine Aminotransferase 19 U/L (0-31); Albumin Level 5.0 g/dL (3.5-5.0); Alkaline Phosphatase 72 U/L (39-117); Anion Gap 13 (12-20); Aspartate Amino Transferase 22 U/L (5-31); Blood Urea Nitrogen 11 mg/dL (9-16); Calcium 9.6 mg/dL (8.4-10.2); Carbon Dioxide 25 mmol/L (22-29); Chloride 106 mmol/L (96-108); Cholesterol 234 mg/dL (<200); Estimated Glomerular Filt Rate > 60; HDL Cholesterol 58 mg/dL (>40); Iron 67 mcg/dL (30-160); Percent Iron Saturation 21 % (15-50); Potassium 4.5 mmol/L (3.3-5.1); Sodium 139 mmol/L (135-145); Total Iron Binding Capacity 323 mcg/dL (228-428); Total Protein 7.3 g/dL (6.5-8.0); Triglycerides 115 mg/dL (<150); Unsaturated Iron Binding 256 ug/dL
[2025-10-01 13:34] LABS: Ferritin 13 ng/mL (10-250)
[2025-10-01 13:35] LABS: Folate 8.7 ng/mL (> or = 4.0); Vitamin B12 964 pg/mL (200-900)
--- OUTSIDE RECORDS SUMMARY | 2025-10-01 15:12 | XMS_ITS | Encounter Summary ---
Author Organization [facility] Address [address] [place] [address] Phone Care Team Providers Care Locker Attendant Name Role Phone Savanah Jara MD Primary Care Provider + Encounter Details Date Type Department Care Team (Latest Contact Info) Description 04/15/2021 Transcribe Orders Virtual Department [address] [place] [address] Danielle Alva PA-C [address] [place] [address] [email or web address] Gastroesophageal reflux disease, unspecified whether esophagitis [...] Primary documented in this encounter Care Teams Locker Attendant Relationship Specialty Start Date End Date Savanah Jara MD [address] [place] [id number] PCP - General Family Medicine 02/16/18 documented as of this encounter Additional Source Comments The information contained in this document represents components of the legal health record. It is not the complete legal health record.[facility]
--- OUTSIDE RECORDS SUMMARY | 2025-10-01 15:12 | XMS_ITS | Encounter Summary ---
Author Organization [facility] Address [address] [place] [address] Phone Care Team Providers Care Insulator Technician Name Role Phone Savanah Jara MD Primary Care Provider + Encounter Details Date Type Department Care Team (Late st Contact Info) Description 07/25/2018 Procedure Pass [address] [address] Social History Tobacco Use Types Packs/Day Years [...] on filedocumented in this encounter Care Teams Insulator Technician Relationship Specialty Start Date End Date Savanah Jara MD [address] [place] [phone] PCP - General Family Medicine 02/16/18 documented as of this encounter Additional Source Comments The information contained in this document represents components of the legal health record. It is not the complete legal health record.[facility]
--- OUTSIDE RECORDS SUMMARY | 2025-10-01 15:12 | XMS_ITS | Encounter Summary ---
Author Organization [facility] Address [address] [facility] [address] [place] [address] Phone Care Team Providers Care Artificial Marble Worker Name Role Phone Savanah Jara MD Primary Care Provider + Reason for Referral * MRI/CAT Scan - Closed Specialty Diagnoses / Procedures Referred By Michaelaac t Referred To Contact Radiology Diagnoses Neck pain Unspecified disturbances of skin sensation Nonintractable headache, unspecified chronicity pattern, unspecified headache type Procedures MRI Brain Diamond Garcia PA-C Phone: tel: fax: [email or web address] Referral ID Status Reason Start Date Expiration Date Visits Re quested Visits Authorized [id number] Closed 07/24/2018 08/22/2018 1 1 * MRI/CAT Scan - Closed Specialty Diagnoses / Procedures Referred By Bree monreal Referred To Contact Radiology Diagnoses Neck pain Unspecified disturbances of skin sensation Nonintractable headache, unspecified chronicity pattern, unspecified headache type Procedures MRI Cervical Spine Diamond Garcia PA-C Phone: tel: fax: [email or web address] Referral ID Status Reason Start Date Expiration Date Visits Re quested Visits Authorized [id number] Closed 07/24/2018 08/22/2018 1 1 Encounter Details Date Type Department Care Team (Late st Contact Info) Description 07/25/2018 Ancillary Orders Virtual Department [address] [place] [address] Diamond Garcia PA-C [facility] [place] [address] [email or web address] Neck pain; Unspecified disturbances of skin sensation; Nonintractable headache, unspecified chronicity pattern, unspecified headache type Social History Tobacco Use Types Packs/Day Years Used Date Smoking Tobacco: Never Assessed Comments Unknown Sex and Gender Information Value Date Recorded Sex Assigned at Not on file Legal Sex Female 3:23 PM EDT Gender Identity Not on file Sexual Orientation Not on file documented as of this encounter Plan of Treatment Not on file documented as of this encounter Results * MRI BRAIN WITH AND WITHOUT CONTRAST (08/07/2018 12:14 PM EDT) Anatomical Region Laterality Modality Head Magnetic Resonan ce 08/07/2018 12:4 2 PM EDT Impressions 08/07/2018 12:46 PM EDT Normal MRI of the brain. No explanation for headaches or complication of migraine headaches is noted. S/S: Abnormal MRI cervical spine previously, neck pain, questionable demyelinating disease POS [id number] Narrative 08/07/2018 12:46 PM EDT COMPARISON: None TECHNIQUE: Exam performed on a 1.5 Josefa high-field MRI scanner. Axial T1, T2, T2 FLAIR and diffusion-weighted imaging with ADC map, sagittal T1 and T2 FLAIR sequences were obtained as well as T1 axial post-gadolinium sequences. MRI BRAIN FINDINGS: The ventricular system is of normal size and position. No extra-axial fluid collection or mass effect of concern is noted. No shift of midline structures is seen. The periventricular white matter is unremarkable. On diffusion-weighted imaging there are no brain parenchymal findings of significant restricted diffusion seen. No acute infarct is evident. No intracranial hemorrhage is seen. After contrast is given there are no abnormal areas of enhancement seen. The sinuses are clear. There is normal aeration of the mastoid air cells. The cerebellar tonsils are normally positioned. The sella turcica is unremarkable. Procedure Note Monty Butt MD - 08/07/2018 COMPARISON: None TECHNIQUE: Exam performed on a 1.5 Josefa high-field MRI scanner. AxialT1, T2, T2 FLAIR and diffusion-weighted imaging with ADC map, sagittal T1and T2 FLAIR sequences were obtained as well as T1 axial post-gadoliniumsequences. MRI BRAIN FINDINGS: The ventricular system is of normal size and position. No extra-axial fluid collection or mass effect of concern is noted. Noshift of midline structures is seen. The periventricular white matter is unremarkable. On diffusion-weighted imaging there are no brain parenchymal findings ofsignificant restricted diffusion seen. No acute infarct is evident. No intracranial hemorrhage is seen. After contrast is given there are no abnormal areas of enhancement seen. The sinuses are clear. There is normal aeration of the mastoid aircells. The cerebellar tonsils are normally positioned. The sella turcica isunremarkable. IMPRESSION: Normal MRI of the brain. No explanation for headaches or complication ofmigraine headaches is noted. S/S: Abnormal MRI cervical spine previously, neck pain, questionabledemyelinating disease POS [id number] [facility] Jose VINEETOrquidea [facility] [place] HEAD/NECK Final Resul t * MRI CERVICAL SPINE (BONE) WITH AND WITHOUT CONTRAST (08/07/2018 12:11 PM EDT) Anatomical Region Laterality Modality C-spine Magnetic Resonan ce 08/07/2018 12:4 6 PM EDT Impressions 08/07/2018 12:50 PM EDT Mild cervical spondylosis with minor disc bulging evident at C5-6 and C6-7. No disc protrusion, spinal stenosis, or intrinsic cord pathology is seen. The previously described possible finding in the cervical cord at the C6-7 level is not identified currently. This was likely an artifact previously. S/S: Neck pain, abnormal prior cervical spine MRI. POS - [id number] Narrative 08/07/2018 12:50 PM EDT COMPARISON: Cervical spine MRI February 27, 2018 TECHNIQUE: Exam performed on a 1.5 Josefa high-field MRI scanner. Sagittal T1, T2 and STIR, axial T2* gradient echo and 3-D bright fluid sequences were obtained as well as sagittal T1 post-gadolinium sequences. FINDINGS: The finding suggested on the prior MRI of the cervical spine in the dorsal cervical cord at the C6-7 level is not evident currently. I presume this was an artifact previously. No intrinsic cord pathology is seen. The cerebellar tonsils are normally positioned. There is minor disc space narrowing and desiccation at the C5-6 and C6-7 discs similar to that evident previously. Minimal disc bulging at these levels is also noted. These findings are unchanged. Procedure Note Monty Butt MD - 08/07/2018 COMPARISON: Cervical spine MRI February 27, 2018 TECHNIQUE: Exam performed on a 1.5 Josefa high-field MRI scanner. SagittalT1, T2 and STIR, axial T2* gradient echo and 3-D bright fluid sequenceswere obtained as well as sagittal T1 post-gadolinium sequences. FINDINGS: The finding suggested on the prior MRI of the cervical spine in the dorsalcervical cord at the C6-7 level is not evident currently. I presume thiswas an artifact previously. No intrinsic cord pathology is seen. The cerebellar tonsils are normally positioned. There is minor disc space narrowing and desiccation at the C5-6 and C6-7discs similar to that evident previously. Minimal disc bulging at theselevels is also noted. These findings are unchanged. IMPRESSION: Mild cervical spondylosis with minor disc bulging evident at C5-6 andC6-7. No disc protrusion, spinal stenosis, or intrinsic cord pathology isseen. The previously described possible finding in the cervical cord atthe C6-7 level is not identified currently. This was likely an artifactpreviously. S/S: Neck pain, abnormal prior cervical spine MRI. POS - [id number] us Diamond Garcia PA-C IMG MR XSPECIALTY Final Resu lt documented in this encounter Visit Diagnoses Diagnosis Neck pain Cervicalgia Unspecified disturbances of skin sensation Nonintractable headache, unspecified chronicity pattern, unspecified headache type Neck pain Cervicalgia Unspecified disturbances of skin sensation Nonintractable headache, unspecified chronicity pattern, unspecified headache type Neck pain Cervicalgia Unspecified disturbances of skin sensation Nonintractable headache, unspecified chronicity pattern, unspecified headache type documented in this encounter Care Teams Artificial Marble Worker Relationship Specialty Start Date End Date Savanah Jara MD [address] [place] [id number] [email or web address] PCP - General Family Medicine 02/16/18 documented as of this encounter Additional Source Comments The information contained in this document represents components of the legal health record. It is not the complete legal health record.[facility]
--- OUTSIDE RECORDS SUMMARY | 2025-10-01 15:13 | XMS_ITS | Encounter Summary ---
Author Organization [facility] Address [address] [facility] [address] [place] [address] Phone Care Team Providers Care Summer Nanny Name Role Phone Savanah Jara MD Primary Care Provider + Encounter Details Date Type Department Care Team (Late st Contact Info) Description 02/16/2018 Ancillary Orders Virtual Department [address] [place] [address] Diamond Garcia PA-C [address] [place] [address] [facility] [place] [address] [email or web address] Neck pain; Disturbance of skin sensation Social History Tobacco Use Types Packs/Day Years Used Date Smoking Tobacco: Never Assessed Comments Unknown Sex and Gender Information Value Date Recorded Sex Assigned at Not on file Legal Sex Female 3:23 PM EDT Gender Identity Not on file Sexual Orientation Not on file documented as of this encounter Plan of Treatment Not on file documented as of this encounter Results * MRI CERVICAL SPINE (BONE) WITHOUT CONTRAST (02/27/2018 9:26 PM EDT) Anatomical Region Laterality Modality C-spine Magnetic Resonan ce 02/28/2018 7:12 AM EDT Impressions 02/28/2018 7:20 AM EDT 1. Mild C5-6 and C6-7 degenerative disc disease with mild right C5-6 neural foraminal stenosis due to spurring. No significant disc herniation or canal stenosis. No nerve root compression. 2. Indeterminate small hyperintense signal within the posterior central spinal cord at C6-7. This may represent artifact or less likely myelomalacia or demyelinating changes. A short-term follow-up MRI may be warranted. POS - [id number] Narrative 02/28/2018 7:20 AM EDT COMPARISON: None. TECHNIQUE: Exam performed on a 1.5 Josefa high-field MRI scanner. Sagittal T1, T2 and STIR, axial T2* gradient echo and 3-D bright fluid sequences were obtained. MRI CERVICAL SPINE FINDINGS: Mild reversal of cervical lordosis. Mild C5-6 and C6-7 disc space narrowing and disc desiccation. No bone marrow signal abnormality. No cerebellar tonsil herniation. There is a small T2 hyperintense signal abnormality in the posterior central spinal cord at C6-7 on the sagittal and axial sequences of uncertain significance. Paraspinal soft tissues are normal. C2-3: Normal. C3-4: Normal. C4-5: Normal. C5-6: Small generalized disc osteophyte complex. Right uncovertebral spurring causing mild neural foraminal stenosis. C6-7: Small generalized disc osteophyte complex. C7-T1: Normal Procedure Note Kassi Gardner MD - 02/28/2018 COMPARISON: None. TECHNIQUE: Exam performed on a 1.5 Josefa high-field MRI scanner. SagittalT1, T2 and STIR, axial T2* gradient echo and 3-D bright fluid sequenceswere obtained. MRI CERVICAL SPINE FINDINGS: Mild reversal of cervical lordosis. Mild C5-6 and C6-7 disc spacenarrowing and disc desiccation. No bone marrow signal abnormality. Nocerebellar tonsil herniation. There is a small T2 hyperintense signalabnormality in the posterior central spinal cord at C6-7 on the sagittaland axial sequences of uncertain significance. Paraspinal soft tissuesare normal. C2-3: Normal. C3-4: Normal. C4-5: Normal. C5-6: Small generalized disc osteophyte complex. Right uncovertebralspurring causing mild neural foraminal stenosis. C6-7: Small generalized disc osteophyte complex. C7-T1: Normal IMPRESSION: 1. Mild C5-6 and C6-7 degenerative disc disease with mild right C5-6neural foraminal stenosis due to spurring. No significant disc herniationor canal stenosis. No nerve root compression. 2. Indeterminate small hyperintense signal within the posterior centralspinal cord at C6-7. This may represent artifact or less likelymyelomalacia or demyelinating changes. A short-term follow-up MRI may bewarranted. POS - [id number] [facility] Jose AVILEZ IMG MR XSPECIALTY Final Resu lt documented in this encounter Visit Diagnoses Diagnosis Neck pain Cervicalgia Disturbance of skin sensation Neck pain Cervicalgia Disturbance of skin sensation documented in this encounter Care Teams Summer Nanny Relationship Specialty Start Date End Date Savanah Jara MD [address] [place], [place] [id number] [email or web address] PCP - General Family Medicine 02/16/18 documented as of this encounter Additional Source Comments The information contained in this document represents components of the legal health record. It is not the complete legal health record.[facility]
--- OUTSIDE RECORDS SUMMARY | 2025-10-01 15:13 | XMS_ITS | Encounter Summary ---
Author Organization [facility] Address [address] [facility] [address] [place] [address] Phone Care Team Providers Care Ink Printer Name Role Phone Savanah Jara MD Primary Care Provider + Encounter Details Date Type Department Care Team (Late st Contact Info) Description 11/28/2019 Ancillary Orders [facility], X-Ray - [address] [address] Kathleen Turner PA [address] [place] [id number] [email or web address] Left knee pain, unspecified chronicity Social History Tobacco Use Types Packs/Day Years Used Date Smoking Tobacco: Never Assessed Comments Unknown Sex and Gender Information Value Date Recorded Sex Assigned at Not on file Legal Sex Female 3:23 PM EDT Gender Identity Not on file Sexual Orientation Not on file documented as of this encounter Plan of Treatment Not on file documented as of this encounter Results * XR KNEE 4 OR MORE VIEWS (LEFT) (11/28/2019 11:45 AM EST) Anatomical Region Laterality Modality Knee Left Radiographic Ania ging 11/28/2019 11:5 1 AM EST Impressions 11/28/2019 11:53 AM EST Negative radiographs of the knee. POS - [id number] Narrative 11/28/2019 11:53 AM EST HISTORY: Pain for a month, swelling. COMPARISON: None. FINDINGS: 4 views. No evidence of fracture or dislocation. The joint space is well-maintained. No significant arthritic changes. Mineralization appears normal. No evidence of gross joint effusion. Procedure Note Geoff Nielsen MD - 11/28/2019 HISTORY: Pain for a month, swelling. COMPARISON: None. FINDINGS: 4 views. No evidence of fracture or dislocation. The joint space iswell-maintained. No significant arthritic changes. Mineralization appearsnormal. No evidence of gross joint effusion. IMPRESSION: Negative radiographs of the knee. POS - [id number] us Kathleen MANLEY IMG XR LOWER EXTREMITY Final Res ult documented in this encounter Visit Diagnoses Diagnosis Left knee pain, unspecified chronicity Left knee pain, unspecified chronicity documented in this encounter Care Teams Ink Printer Relationship Specialty Start Date End Date Savanah Jara MD [address] [place], [place] [phone] [email or web address] PCP - General Family Medicine 02/16/18 documented as of this encounter Additional Source Comments The information contained in this document represents components of the legal health record. It is not the complete legal health record.[facility]
--- OUTSIDE RECORDS SUMMARY | 2025-10-01 15:13 | XMS_ITS | Encounter Summary ---
Author Organization [facility] Address [address] [facility] [address] [place] [address] Phone Care Team Providers Care Matrix Bath Attendant Name Role Phone Savanah Jara MD Primary Care Provider + Encounter Details Date Type Department Care Team (Latest Contact Info) Description 04/17/2020 Transcribe Orders Virtual Department [address] [place] [address] Geoff Palacios MD [address] [place] [phone] [email or web address] Encounter for pre-operative laboratory testing (Primary Dx) Social History Tobacco Use Types [...] documented as of this encounter Results * COVID-19 PCR Order (04/22/2020 11:00 AM EDT) Specimen Source NASOPHARYNGEAL SWAB ([place]) [facility] COVID Testing Status In-house testing being performed [facility] Other 04/22/2020 11:0 0 AM EDT 04/22/2020 12:23 PM EDT us Geoff Palacios MD LAB GENERAL ORDERABLES Final Result [address] [address] documented in this encounter Visit Diagnoses Diagnosis Encounter for pre-operative laboratory testing- Primary documented in this encounter Care Teams Matrix Bath Attendant Relationship Specialty Start Date End Date Savanah Jara MD [address] [place] [phone] [email or web address] PCP - General Family Medicine 02/16/18 documented as of this encounter Additional Source Comments The information contained in this document represents components of the legal health record. It is not the complete legal health record.[facility]
--- OUTSIDE RECORDS SUMMARY | 2025-10-01 15:13 | XMS_ITS | Encounter Summary ---
Author Organization [facility] Address [address] [facility] [address] [place] [address] Phone Care Team Providers Care First Calender Worker Name Role Phone Savanah Jara MD Primary Care Provider + Encounter Details Date Type Department Care Team (Late st Contact Info) Description 07/25/2018 Procedure Pass [address] [address] Social History Tobacco Use Types Packs/Day Years [...] on filedocumented in this encounter Care Teams First Calender Worker Relationship Specialty Start Date End Date Savanah Jara MD [address] [place] [address] PCP - General Family Medicine 02/16/18 documented as of this encounter Additional Source Comments The information contained in this document represents components of the legal health record. It is not the complete legal health record.[facility]
--- OUTSIDE RECORDS SUMMARY | 2025-10-01 15:13 | XMS_ITS | Clinical Summary ---
Author Organization [facility] Address [address] [facility] [address] [place] [address] Phone Care Team Providers Care Machine Hoop Maker Name Role Phone Savanah Jara MD Primary Care Provider + Social History Tobacco Use Types Packs/Day Years Used Date Smoking Tobacco: Never Assessed Education Answer Date Recorded Are you interested in more education? Not on renate e 03/03/2023 Are you concerned about learning? Not on file 03/03/2023 No 03/03/2023 No 03/03/2023 Digital Access Answer Date Recorded No 04/04/2023 No 04/04/2023 No 04/04/2023 Reliable internet access at home? Not on file 04/04/2023 Device with a working camera? Not on file Comments Unknown Sex and Gender Information Value Date Recorded Sex Assigned at Not on file Legal Sex Female 3:23 PM EDT Gender Identity Not on file Sexual Orientation Not on file Last Filed Vital Signs Vital Sign Reading Time Taken Comments Blood Pressure - - Pulse - - Temperature - - Respiratory Rate - - Oxygen Saturation - - Inhaled Oxygen Concentration - - Weight 68 kg (150 lb) 08/02/2018 3:07 PM EDT Height 167.6 cm (5' 6 ) 08/02/2018 3:07 PM EDT Body Mass Index 24.21 08/02/2018 3:07 PM EDT Plan of Treatment Not on file Medical Devices Not on file Insurance [facility] CHOICE [facility] CHOICE [facility] [employer] CHOICE [employer] Care Teams Machine Hoop Maker Relationship Specialty Start Date End Date Savanah Jara MD [address] [place] [address] [place] [address] PCP - General Family Medicine 02/16/18 Additional Source Comments The information contained in this document represents components of the legal health record. It is not the complete legal health record.[facility]
--- OUTSIDE RECORDS SUMMARY | 2025-10-01 15:13 | XMS_ITS | Encounter Summary ---
Author Organization [facility] Address [address] [facility] [address] [place] [address] Phone Care Team Providers Care Gang Leader Name Role Phone Savanah Jara MD Primary Care Provider + Encounter Details Date Type Department Care Team (Late st Contact Info) Description 02/16/2018 Procedure Pass [address] [address] Social History Tobacco Use Types Packs/Day Years [...] on filedocumented in this encounter Care Teams Gang Leader Relationship Specialty Start Date End Date Savanah Jara MD [address] [place] [address] PCP - General Family Medicine 02/16/18 documented as of this encounter Additional Source Comments The information contained in this document represents components of the legal health record. It is not the complete legal health record.[facility]
--- OUTSIDE RECORDS SUMMARY | 2025-10-01 15:13 | XMS_ITS | Encounter Summary ---
Author Organization [facility] Address [address] [facility] [address] [place] [address] Phone Care Team Providers Care Double Needle Operator Name Role Phone Savanah Jara MD Primary Care Provider + Encounter Details Date Type Department Care Team (Late st Contact Info) Description 08/05/2019 Transcribe Orders Virtual Department [address] [place] [address] Kayley Lott PA [address] [place] [address] [email or web address] Nontoxic goiter, unspecified (Primary Dx); Thyroiditis Social History Tobacco Use Types Packs/Day Years Used Date Smoking Tobacco: Never Assessed Comments Unknown Sex and Gender Information Value Date Recorded Sex Assigned at Not on file Legal Sex Female 3:23 PM EDT Gender Identity Not on file Sexual Orientation Not on file documented as of this encounter Plan of Treatment Not on file documented as of this encounter Results * US Thyroid Gland (08/27/2019 1:20 PM EDT) Anatomical Region Laterality Modality Neck, Head, Chest Ultrasound 08/27/2019 2:48 PM EDT Impressions 08/27/2019 3:58 PM EDT Thyroidomegaly. No suspicious thyroid nodules. POS - [id number] Narrative 08/27/2019 3:58 PM EDT HISTORY: Swelling, thyroiditis. COMPARISON: None. FINDINGS: Isthmus: No focal abnormalities. Right lobe:The lobe is enlarged and measures 7.4 cm x 2.5 cm x 1.3 cm. No evidence of suspicious nodules. There are a few scattered small cysts within the lobe. Left lobe:The lobe is enlarged measuring 6.6 cm x 2.6 cm x 1.5 cm. There are a few scattered small cysts within the lobe. Located in the lower pole is a 6 mm x 6 mm x 4 mm spongiform well-circumscribed nodule which is wider than tall. It does not appear calcified. Procedure Note Geoff Nielsen MD - 08/27/2019 HISTORY: Swelling, thyroiditis. COMPARISON: None. FINDINGS: Isthmus: No focal abnormalities. Right lobe:The lobe is enlarged and measures 7.4 cm x 2.5 cm x 1.3 cm. Noevidence of suspicious nodules. There are a few scattered small cystswithin the lobe. Left lobe:The lobe is enlarged measuring 6.6 cm x 2.6 cm x 1.5 cm. Thereare a few scattered small cysts within the lobe. Located in the lower poleis a 6 mm x 6 mm x 4 mm spongiform well-circumscribed nodule which iswider than tall. It does not appear calcified. IMPRESSION: Thyroidomegaly. No suspicious thyroid nodules. POS - [id number] Kayley MANLEY [facility] THYROID Final Re sult documented in this encounter Visit Diagnoses Diagnosis Nontoxic goiter, unspecified- Primary Thyroiditis Unspecified thyroiditis Nontoxic goiter, unspecified Thyroiditis Unspecified thyroiditis documented in this encounter Care Teams Double Needle Operator Relationship Specialty Start Date End Date Savanah Jara MD [address] [place] [address] [email or web address] PCP - General Family Medicine 02/16/18 documented as of this encounter Additional Source Comments The information contained in this document represents components of the legal health record. It is not the complete legal health record.[facility]
== END 2025-10-01 12:11 | disposition home or self-care (01) ==
LOC: HO.LAB 12:10
PROVIDERS: PCP Physician Assistant; Visit Provider Physician Assistant
DX: E53.8 Deficiency of other specified B group vitamins (principal); E78.5 Hyperlipidemia, unspecified; D50.9 Iron deficiency anemia, unspecified; R73.03 Prediabetes
CPT/HCPCS: 36415; 80053; 80061; 82607; 82728; 82746; 83036; 83540; 85025